=== PATIENT | male | born 1980 | race Caucasian/White ===

== ENCOUNTER 2022-02-05 00:23 | Emergency (ER) | payer MEDICAID, OTHER ==
[~2022-02-05] VITALS: Ht 180.3 cm; Wt 79.8 kg
--- NOTE | 2022-02-05 00:32 | NUR ---
pt bib ra states he is covid positive. no c/o any medical issues noted. Dr. Burnett in room for SHIRIN.
[2022-02-05] MEDS ORDERED: IBUPROFEN 600 MG TABLET ONE (00:40)
[2022-02-05] MEDS ORDERED: ASPIRIN 81 MG TAB.CHEW ONE (00:40)
[2022-02-05] MEDS ORDERED: ASPIRIN 81 MG TAB.CHEW PO ONE (00:45)
[2022-02-05] MEDS ORDERED: IBUPROFEN 600 MG TABLET PO ONE (00:45)
[2022-02-05] MEDS ORDERED: ACETAMINOPHEN/CODEINE 120-12 MG PER 5 ML LIQUID UDC ONE ×2 (01:07→01:12)
[2022-02-05] MEDS ORDERED: ACETAMINOPHEN/CODEINE 120-12 MG PER 5 ML LIQUID UDC PO ONE ×2 (01:15)
[2022-02-05] MEDS ORDERED: PRED20TA PO (01:37)
[2022-02-05] MEDS ORDERED: predniSONE 20 MG TABLET ONE (01:41)
[2022-02-05] MEDS ORDERED: predniSONE 20 MG TABLET PO ONE (01:45)
[2022-02-05 01:59] LABS: HEMATOCRIT 39.8 % (36.7-47.1); MEAN CORPUSCULAR HEMOGLOBIN 30.8 uug (23.8-33.4); MEAN CORPUSCULAR VOLUME 88.7 fL (73.0-96.2); PLATELET COUNT (AUTO) 191 K/uL (152-348)
[2022-02-05 02:01] LABS: CARBON DIOXIDE 24 mmol/L (21-32); CHLORIDE 101 mmol/L (98-107); GLUCOSE 114 mg/dL (74-106); POTASSIUM 3.3 mmol/L (3.5-5.1); UREA NITROGEN, BLOOD 18 mg/dL (7-18)
[2022-02-05 02:10] LABS: ALANINE AMINOTRANSFERASE 19 U/L (16-63); ALKALINE PHOSPHATASE 48 U/L (50-136); ASPARTATE AMINOTRANSFERASE 18 U/L (15-37); BILIRUBIN,DIRECT 0.2 mg/dL (0.0-0.2); TOTAL PROTEIN, SERUM 7.3 g/dL (6.4-8.2)
--- NOTE | 2022-02-05 03:22 | NUR ---
pt with eyes closed, responds to verbal to his name. pt denies pain.
--- NOTE | 2022-02-05 05:26 | NUR ---
I informed this pt that his labs have come back and xray, the er md has written prescriptions for the pt. I let the pt know he can rest another hour but after 6am he will be discharged. The pt has asked for Alyx CONNER the charge nurse several times, I let him know I am his nurse and that Alyx is the charge nurse. I let know know the er md can come in and answer any of his questions. When I asked him about what he needs from Alyx he said it is personal. I spoke with Alyx CONNER and she told me that when she did the triage of the pt he was asking of her marital status and whether she has a boyfriend asking her phone number. This pt has been asking about Alyx several times. I have notified Dr. Burnett and Nikole the supervisor [employer] of the pt asking for Alyx and that the pt says its personal.
--- NOTE | 2022-02-05 05:42 | NUR ---
I reviewed discharge information with the pt including his labs and rx that was given to him. He is asking about covid hotels, he continues to ask about alyx and wants her to come in his room. I told him I am his nurse and the doctor has already spoken with him. I asked him what he needs from Alyx he continues to say it's personal. I notifed Alyx of what he continues to press and I asked Alyx to contact the warehouse sorter.
--- NOTE | 2022-02-05 06:04 | NUR ---
pt has become more aggressive asking for Alyx, security is at the bedside speaking with the pt he is becoming more aggressive asking for the charge nurse alyx. the pt was escorted out of the er.
[2022-02-05 06:22] VITALS: BP 125/70
== END 2022-02-05 06:22 | disposition home or self-care (01) ==
LOC: ER 00:33
DX: R07.9 Chest pain, unspecified (principal); Z59.00 Homelessness unspecified; U07.1 COVID-19; J40 Bronchitis, not specified as acute or chronic; F17.210 Nicotine dependence, cigarettes, uncomplicated
CPT/HCPCS: 36415; 71045; 80048; 80076; 84484 ×2; 85025; 87426; 93005; 99285; 99406; J7512; A4663

== ENCOUNTER 2023-03-16 16:11 | Emergency (ER) | payer OTHER ==
[~2023-03-16] VITALS: Ht 175.3 cm; Wt 83.9 kg
[~2023-03-16 16:11] MED LIST: PRED20TA PO
[2023-03-16 17:18] LABS: BASOPHILS % (AUTO) 0.4 % (0.0-2.0); EOSINOPHILS % (AUTO) 0.4 % (0.0-7.0); HEMATOCRIT 43.7 % (36.7-47.1); HEMOGLOBIN 14.7 g/dL (12.5-16.3); LYMPHOCYTES # (AUTO) 1.8 K/uL (0.8-4.8); LYMPHOCYTES % (AUTO) 22.8 % (20.5-51.5); MEAN CORPUSCULAR HEMOGLOBIN 30.7 uug (23.8-33.4); MEAN CORPUSCULAR HGB CONC 34 g/dL (32.5-36.3); MEAN CORPUSCULAR VOLUME 91.4 fL (73.0-96.2); MONOCYTES # (AUTO) 0.5 K/uL (0.1-1.30); MONOCYTES % (AUTO) 6.9 % (0.0-11.0); NEUTROPHILS # (AUTO) 5.4 K/uL (1.8-8.9); NEUTROPHILS % (AUTO) 69.5 % (38.5-71.5); PLATELET COUNT (AUTO) 227 K/uL (152-348); RED BLOOD CELL COUNT(AUTO) 4.78 MIL/uL (4.06-5.63); RED CELL DISTRIBUTION WIDTH 13.4 % (12.1-16.2); WHITE BLOOD COUNT (AUTO) 7.8 K/uL (3.6-10.2)
[2023-03-16 17:28] LABS: CALCIUM 8.9 mg/dL (8.5-10.1); CARBON DIOXIDE 24 mmol/L (21-32); CHLORIDE 103 mmol/L (98-107); CREATININE 1.1 mg/dL (0.6-1.3); GLUCOSE 138 mg/dL (74-106); POTASSIUM 3.4 mmol/L (3.5-5.1); SODIUM SERUM 139 mmol/L (136-145); UREA NITROGEN, BLOOD 18 mg/dL (7-18)
[2023-03-16 17:29] LABS: DIFFERENTIAL COMMENT 1
[2023-03-16 17:42] LABS: ALANINE AMINOTRANSFERASE 12 U/L (16-63); ALBUMIN 3.9 g/dL (3.4-5.0); ALKALINE PHOSPHATASE 66 U/L (50-136); ASPARTATE AMINOTRANSFERASE 12 U/L (15-37); BILIRUBIN,DIRECT 0.2 mg/dL (0.0-0.2); BILIRUBIN,TOTAL 0.6 mg/dL (0.2-1.0); TOTAL PROTEIN, SERUM 7.4 g/dL (6.4-8.2)
[2023-03-16 17:51] LABS: ACETAMINOPHEN < 2.0 ug/mL (10-30)
[2023-03-16 17:54] LABS: ETHANOL < 3 MG/DL (0-10)
[2023-03-16] MEDS ORDERED: LORAZEPAM 0.5 MG TABLET PO ONE (19:45)
[2023-03-16] MEDS ORDERED: ARIPIPRAZOLE 5 MG TABLET PO ONE (19:45)
[2023-03-16 20:25] LABS: *BILIRUBIN,URIN NEGATIVE (NEGATIVE); *BLOOD, URINE 1+ (NEGATIVE); *CLARITY,URINE CLEAR (CLEAR); *COLOR,URINE YELLOW (YELLOW); *KETONES,URINE NEGATIVE (NEGATIVE); *PROTEIN,URINE NEGATIVE (NEGATIVE); LEUKOCYTE ESTERASE ,URINE NEGATIVE (NEGATIVE); NITRITE, URINE NEGATIVE (NEGATIVE); PH,URINE 5.5 (5.0-8.0); UGLUCOSE NEGATIVE (NEGATIVE)
[2023-03-16 20:34] LABS: BACTERIA,URINE NONE SEEN /HPF (NONE SEEN); SQUAMOUS EPITHELIAL CELL,UR NONE SEEN /HPF (NONE SEEN); WBC,URINE 0-3 /HPF (0-3)
[2023-03-16 20:42] LABS: *AMPHETAMINE, URINE NEGATIVE (NEGATIVE); *BARBITURATE, URINE NEGATIVE (NEGATIVE); *BENZODIAZEPINE, URINE NEGATIVE (NEGATIVE); *CANNABINOID, URINE POSITIVE (NEGATIVE); *COCCAINE, URINE NEGATIVE (NEGATIVE); *OPIATE, URINE NEGATIVE (NEGATIVE); *PHENCYCLIDINE SCREEN,URINE NEGATIVE (NEGATIVE); FENTANYL, URINE NEGATIVE (NEGATIVE)
[2023-03-16] MEDS ORDERED: ARIPIPRAZOLE 5 MG TABLET ONE (22:10)
[2023-03-16] MEDS ORDERED: LORAZEPAM 1 MG TABLET ONE (22:10)
[2023-03-17 01:00] VITALS: O2SAT 96
== END 2023-03-17 03:45 ==
LOC: ER 16:11
DX: R45.851 Suicidal ideations (principal); F41.8 Other specified anxiety disorders; F20.9 Schizophrenia, unspecified; F17.210 Nicotine dependence, cigarettes, uncomplicated; Z79.899 Other long term (current) drug therapy; Z20.822 Contact with and (suspected) exposure to COVID-19
CPT/HCPCS: 36415; 85025; A4663; G0480